=== PATIENT | female | born 1985 | race Caucasian/White ===

== ENCOUNTER 2016-08-16 03:18 | Inpatient (IN) | payer OTHER ==
[2016-08-16] MEDS ORDERED: Ondansetron 4 MG/2 ML SDV IVPUSH PRN (07:43)
[2016-08-16] MEDS ORDERED: Sodium Chloride 0.9% 10 ML Syringe FLUSH PRN (07:43)
[2016-08-16] MEDS ORDERED: Nalbuphine 20 MG/1 ML Amp IVPUSH PRN (07:43)
[2016-08-16] MEDS ORDERED: Oxytocin/Lactated Ringers 10 UNIT/1,000 ML BAG IV SCH (07:45)
[2016-08-16] MEDS ORDERED: Lidocaine 1% 50 ML MDV INJECT SCH (07:45)
[2016-08-16] MEDS: Oxytocin/Lactated Ringers 10 UNIT/1,000 ML BAG IV SCH ×2 (08:16→18:45)
[2016-08-16] MEDS: Lactated Ringers 1,000 ML IV SCH ×4 (08:17→23:19)
--- NOTE | 2016-08-16 09:03 | HP ---
DATE OF ADMISSION: 08/16/2016 ADMISSION DIAGNOSIS: A 39 and 1/7th week intrauterine , elective induction of labor. HISTORY OF PRESENT ILLNESS: The patient is a 31-year-old 3, para 1-0-1-1 white female, who is admitted for elective induction of labor. She has an intrauterine at 39 and 1/7th weeks gestational age as based upon a certain last menstrual period started on 11/16/2015, giving an WONG of 08/22/2016 and supported by ultrasounds done on 01/13/2016, 02/10/2016, and 04/27/2016. The patient is scheduled for admission early on the morning of 08/16/2016 for Pitocin induction. The procedure, risks, benefits, alternatives of care, limitations and followup were discussed in detail with the patient. She appears to understand and wishes to proceed. FUR TANNER HISTORY: 3, para 1-0-1-1. Last 2 pregnancies include the followin. Female born on 06/08/2014 at 40 and 4/7th weeks gestational age after 24 hours of labor - normal spontaneous vaginal delivery - epidural - [facility] - child's name is Estefania Cassidy. 2. Miscarriage, 8 weeks gestational age on 09/01/2015. The patient had last menstrual period started 11/16/2015. Relatively certain. Cycles come every 30 days. Using no control at the time of conception. Menarche age 12. Positive HCG was on 01/16/2016. Her has been relatively unremarkable with her first visit at 12 and 2/7th weeks gestational age on 02/10/2016. Her fundal height growth has been appropriate for gestational age and her weight gain has been approximately 38 pounds for a final weight of 199 pounds. Her vital signs have been stable. The patient had a [place] test which returned negative on 03/15/2016. She is desiring epidural in Labor. Diphtheria pertussis tetanus vaccination was given on 07/05/2016. She is group B strep screen positive. Laboratory testing in shows her blood to be A positive with a negative antibody screen. Hemoglobin is 11 whereas 13.3 at first visit and platelets were 286 at that time. Rubella titer shows immunity. RPR is nonreactive. Hepatitis B and HIV assays were negative. Chlamydia and gonorrhea assays were negative. [place] test in 03/09/2016 was normal. Her 1-hour GTT was elevated at 153. Her 3-hour glucose tolerance test showed a fasting blood sugar of 72, a 1-hour sugar of 152, a 2-hour glucose of 176, and a 3-hour glucose of 122. Group B strep screen was negative. ALLERGIES: None. CURRENT MEDICATIONS: 1. vitamins 1 daily. 2. Diphenhydramine 1 at bedtime p.r.n. 3. Gaviscon p.r.n. for heartburn. PAST MEDICAL HISTORY: 1. Normal spontaneous vaginal delivery, 2013. 2. Abnormal Pap smear with resultant cervical cryotherapy, 2007. PAST SURGICAL HISTORY: 1. Hemorrhoidectomy. 2. Cervical cryotherapy, 2007. FAMILY HISTORY: Maternal grandmother with diabetes. Maternal grandmother and maternal grandfather with hypertension. Mother with hyperthyroidism. Maternal aunt with breast cancer. No anesthesia, bleeding, or blood clotting problems noted in the family. SOCIAL HISTORY: The patient is . She lives in [place], [place]. is Franco Solis. She does not use any significant amounts of alcohol, drugs, or tobacco. REVIEW OF SYSTEMS: SKIN: No lesions. HEENT: No concerns. CARDIOVASCULAR: No chest pain, exercise intolerance. RESPIRATORY: No URI, shortness of breath, or asthma symptoms. BREASTS: Changes only associated with . GASTROINTESTINAL: Appetite is good. No nausea, vomiting, diarrhea, blood, or mucus in the stool. GENITOURINARY: changes consistent with term . EXTREMITIES/MUSCULOSKELETAL: Some lower extremity swelling - mild - no joint deformities, decreased range of other problems. NEUROLOGICAL SYSTEM: No concerns. PHYSICAL EXAMINATION: VITAL SIGNS: On evaluation at her first visit. Her height was 5 feet 7 inches. Her weight was 161. Her body mass index was 25.2. On last evaluation, her blood pressure 124/76, her weight was 200 pounds. GENERAL: The patient is a well-developed, well-nourished, pleasant female, stated age, in no acute distress. SKIN: Warm, dry, without lesions. LUNGS: Clear with good breath sounds in all lung baker. CARDIOVASCULAR: Shows regular rate and rhythm without murmurs. BREAST: Deferred, having been done at first visit found to be normal. No masses, dimpling, or discharge bilaterally. No axillary or supraclavicular lymphadenopathy noted at that time. ABDOMEN: Protuberant with with fundal height consistent with dates at 39 cm. GENITOURINARY: Cervical exam shows cervix to be 1 cm/80% effaced/soft/-2/mid position. EXTREMITIES AND NEUROLOGICAL: Showed trace edema in bilateral lower extremities, otherwise negative. ASSESSMENT: 1. Term intrauterine at the time of admission at 39 and 1/7th weeks gestational age - admitted for elective induction of labor. 2. Group B strep status negative. 3. [place] test negative. 4. The patient is okay with epidural in Labor and Delivery. 5. Tdap given during course. PLAN: 1. Pitocin induction of labor. 2. CBC. 3. Epidural for p.r.n. as per patient's desire. 4. Encourage nursing behavior. MMODAL /[id number]
--- NOTE | 2016-08-16 13:40 | PCM.PREANE ---
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: no symptoms Respiratory: Reports: no symptoms Cardiovascular: Reports: no symptoms GI: Reports: no symptoms Other: Reports: none - PHYSICAL ASSESSMENT HR: 105 RR: 16 BP: 124/87 Temp: 37.1 C Vital Signs: Last Vital Signs Temp Pulse 98 08/16/16 07:47 Resp 16 08/16/16 07:47 BP 122/82 08/16/16 07:47 Pulse Ox Height: 1.7 m Weight: 92.079 kg NPO Status Date: 08/16/16 NPO Status Time: 10:30 ASA Class: 2 Mental Status: alert & oriented x3 Airway Class: Mallampati = 1 Dentition: Reports: normal dentition Thyro-Mental Finger Breadths: 3 Mouth Opening Finger Breadths: 5 ROM/Head Extension: full Respiratory Status: lungs clear to auscultation bilaterally Cardiovascular Status: regular rate & rhythm, normal S1, S2, no murmur, blood pressure WNL - LAB Values: Laboratory Last Values WBC 11.09 K/mm3 (3.98-10.04) H 08/16/16 08:15 RBC 3.56 M/mm3 (3.98-5.22) L 08/16/16 08:15 Hgb 11.5 gm/L (11.2-15.7) 08/16/16 08:15 Hct 34.1 % (34.1-44.9) 08/16/16 08:15 MCV 95.8 fl (79.4-94.8) H 08/16/16 08:15 MCH 32.3 pg (25.6-32.2) H 08/16/16 08:15 MCHC 33.7 g/dl (32.2-35.5) 08/16/16 08:15 RDW Std Deviation 43.3 fL (36.4-46.3) 08/16/16 08:15 Plt Count 247 K/mm3 (182-369) 08/16/16 08:15 MPV 10.0 fl (9.4-12.3) 08/16/16 08:15 Neut % (Auto) 68.8 % (34.0-71.1) 08/16/16 08:15 Lymph % (Auto) 21.5 % (19.3-51.7) 08/16/16 08:15 [place] % (Auto) 7.4 % (4.7-12.5) 08/16/16 08:15 Eos % (Auto) 1.0 (0.7-5.8) 08/16/16 08:15 Baso % (Auto) 0.1 % (0.1-1.2) 08/16/16 08:15 Neut # 7.64 K/mm3 (1.56-6.13) H 08/16/16 08:15 Lymph # 2.38 K/mm3 (1.18-3.74) 08/16/16 08:15 [place] # 0.82 K/mm3 (0.24-0.36) H 08/16/16 08:15 Eos # 0.11 K/mm3 (0.04-0.36) 08/16/16 08:15 Baso # 0.01 K/mm3 (0.01-0.08) 08/16/16 08:15 Manual Slide Review Normal smear 08/16/16 08:15 - ALLERGIES Allergies/Adverse Reactions: Allergies Allergy/AdvReac Type Severity Reaction Status Date / Time No Known Allergies Allergy Verified 08/16/16 06:42 - BLOOD Blood Available: Yes - ANESTHESIA PLAN Preop Beta Bia: No - ACKNOWLEDGEMENTS Pt an appropriate candidate for the planned anesthesia: Yes Alternatives and risks of anesthesia discussed w pt/guardian: Yes Pt/Guardian understands and agree with anesthesia plan: Yes PreAnesthesia Questionnaire Cardiovascular History: Reports: None Respiratory History: Reports: None Gastrointestinal History: Reports: GERD, Hemorrhoids 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: 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: : 3 Para: 1 - Past Surgical History GI Surgical History: Reports: Other (see below) Other GI Surgeries/Procedures: Hemorrhoidectomy - SUBSTANCE USE Smoking Status *Q: Never Smoker Second Hand Smoke Exposure: No Days Per Week of Alcohol Use: 0 Number of Drinks Per Day: 0 Total Drinks Per Week: 0 Recreational Drug Use History: No - HOME MEDS Home Medications: Home Meds PNV95/Ferrous Fumarate/FA [ Tablet] 1 each PO DAILY 08/16/16 [History] diphenhydrAMINE [Benadryl] 50 mg PO DAILY 08/16/16 [History] - CURRENT (IN HOUSE) MEDS Current Meds: Current Medications Lactated Ringer's (Ringers, Lactated) 1,000 mls @ 100 mls/hr IV ASDIRECTED NANCY Last Admin: 08/16/16 08:17 Dose: 100 mls/hr Oxytocin/Lactated Ringer's (Pitocin In Lr 10 Units/1,000 Ml) 10 unit in 1,000 mls @ 500 mls/hr IV TITRATE NANCY Oxytocin/Lactated Ringer's (Pitocin In Lr 10 Units/1,000 Ml) 10 unit in 1,000 mls @ 12 mls/hr IV TITRATE NANCY; 2 MUNITS/MIN PRN Reason: Protocol Last Titration: 08/16/16 13:00 Dose: 18 munits/min, 108 mls/hr Lidocaine HCl (Xylocaine 1%) 10 ml INJECT .ONETIME NANCY Nalbuphine HCl (Nubain) 10 mg IVPUSH Q2H PRN PRN Reason: Pain (moderate 4-6) Ondansetron HCl (Zofran) 4 mg IVPUSH Q4H PRN PRN Reason: Nausea/Vomiting Sodium Chloride (Saline Flush) 10 ml FLUSH ASDIRECTED PRN PRN Reason: Keep Vein Open
[2016-08-16] MEDS ORDERED: diphenhydrAMINE 50 MG/ML SDV IVPUSH PRN (13:57)
[2016-08-16] MEDS ORDERED: ePHEDrine 50 MG/ML SDV IVPUSH PRN (13:57)
[2016-08-16] MEDS: fentaNYL 100 MCG/2 ML SDV EPIDUR PRN ×2 (16:49→23:28)
[2016-08-16] MEDS: Bupivacaine/fentaNYL/NS 100 ML Bag EPIDUR SCH ×2 (16:49→22:52)
[2016-08-17] MEDS ORDERED: Dextrose 5%-Lactated Ringers 1,000 ML ONE (02:13)
--- NOTE | 2016-08-17 03:41 | PCM.SN ---
- Free Text/Narrative Note: Bety is a 31-year-old 2 now para 2002 white female who was admitted on 08/16/2016 for elective induction of labor at 39 weeks. She is induced with Pitocin and eventually with artificial rupture membranes. heart tones were normal throughout the entire course of labor. Her labor progressed slowly but steadily to approximately 200 hours on 08/17/2016 at which time she began pushing. She pushed for approximately an hour and at 0318 hours she delivered a viable, single 10, male weighing 3480 g (7 pounds 10.8 ounces) having Apgars of 8 and 9 in a left occiput anterior position. She delivered over an intact perineum. Baby was placed on mom's abdomen. Cord was allowed to pulsate for 1 minute and then was clamped and cut by the father. Cord blood was obtained. The perineum was intact and no stitches were needed. The patient was administered Pitocin IV after delivery of the baby to facilitate increase in uterine tone and slow bleeding. Placenta delivered in a [place] fashion, intact and complete at 0322 hours. It was discarded per patient desire. Uterus was massaged and found to be at the umbilicus, firm and nontender. Estimated blood loss was 100 cc. Condition good. Patient plans to nurse. Epidural catheter was removed at the end of the procedure without problems.
[2016-08-17] MEDS ORDERED: Dextrose 5%-Lactated Ringers 1,000 ML IV SCH (04:07)
[2016-08-17] MEDS ORDERED: Docusate Sodium 100 MG Cap PO PRN (04:07)
[2016-08-17] MEDS ORDERED: Lanolin 100% Cream 7 GM Tube TOP PRN (04:07)
[2016-08-17] MEDS ORDERED: Benzocaine/Menthol 20%-0.5% Spray 56 GM Canister TOP PRN (04:07)
[2016-08-17] MEDS ORDERED: Witch Hazel Medicated Pads 100/Jar TOP PRN (04:07)
[2016-08-17] MEDS: Ibuprofen 600 MG Tab PO PRN ×4 (05:00→18:02)
[2016-08-17] MEDS: Prenatal Multivitamin with Calcium/Folic Acid/Iron Tab PO SCH (09:10)
[2016-08-17] MEDS: Acetaminophen 325 MG Tab PO PRN ×3 (10:54→20:49)
[2016-08-17] MEDS: Acetaminophen/oxyCODONE 325-5 MG Tab PO PRN (22:40)
[2016-08-18] MEDS: Ibuprofen 600 MG Tab PO PRN (00:39)
[2016-08-18] MEDS: Acetaminophen/oxyCODONE 325-5 MG Tab PO PRN ×3 (04:01→14:16)
[2016-08-18] MEDS: Prenatal Multivitamin with Calcium/Folic Acid/Iron Tab PO SCH (08:44)
--- NOTE | 2016-08-18 09:42 | PCM.DCSUM1 ---
Discharge Summary - Hospital Course Free Text/Narrative:: Bety is a 31-year-old 2 now para 2002 white female who was admitted on 08/16/2016 for elective induction of labor at 39 weeks. She is induced with Pitocin and eventually with artificial rupture membranes. heart tones were normal throughout the entire course of labor. Her labor progressed slowly but steadily to approximately 200 hours on 08/17/2016 at which time she began pushing. She pushed for approximately an hour and at 0318 hours she delivered a viable, single 10, male infant weighing 3480 g (7 pounds 10.8 ounces) having Apgars of 8 and 9 in a left occiput anterior position. She delivered over an intact perineum. Baby was placed on mom's abdomen. Cord was allowed to pulsate for 1 minute and then was clamped and cut by the father. Cord blood was obtained. The perineum was intact and no stitches were needed. The patient was administered Pitocin IV after delivery of the baby to facilitate increase in uterine tone and slow bleeding. Placenta delivered in a [place] fashion, intact and complete at 0322 hours. It was discarded per patient desire. Uterus was massaged and found to be at the umbilicus, firm and nontender. Estimated blood loss was 100 cc. Condition good. Patient plans to nurse. Epidural catheter was removed at the end of the procedure without problems. PP doing well. Hb OK. Wants discharge home. - Discharge Data Discharge Date: 08/18/16 Discharge Disposition: Home, Self-Care 01 Condition: Good - Patient Instructions Diet: Regular Diet as Tolerated (nursing) Activity: As Tolerated (No intercourse of tampons) Driving: May Drive Today Showering/Bathing: May Shower (or bathe) Notify Provider of: Fever, Increased Pain, Swelling and Redness, Nausea and/or Vomiting - Discharge Plan Home Medications: Home Meds PNV95/Ferrous Fumarate/FA [ Tablet] 1 each PO DAILY 08/16/16 [History] Acetaminophen/oxyCODONE [Percocet 325-5 MG] 1 - 2 tab PO Q4H PRN #10 tablet 01/27 [Rx] Ibuprofen [IJD: Ibuprofen] 600 mg PO Q4H PRN #30 tablet 08/18/16 [Rx] Referrals: Khalif Freed MD [Primary Care Provider] - (RTC 6 weeks-[facility]) - Discharge Summary/Plan Comment DC Time >30 min.: No Discharge Summary/Plan Comment: Instructions: 1. Nursing diet 2. Precautions regarding pain, temp, bleeding, DVT/PE given. 3. Meds per home med sheet. 4. RTC [address] Freed Dx: 39 week IUP-delivered cond: good - Patient Data Vitals - Most Recent: Last Vital Signs Temp 36.6 C 08/17/16 13:15 Pulse 85 08/17/16 12:00 Resp 20 08/17/16 12:00 BP 113/73 08/17/16 12:00 Pulse Ox 97 08/17/16 12:00 Weight - Most Recent: 92.079 kg I&O - Last 24 hours: Intake & Output 08/17/16 08/18/16 08/18/16 22:59 06:59 14:59 Intake Total 240 Balance 240 Lab Results - Last 24 hrs: Laboratory Results - last 24 hr 08/18/16 Range/Units 06:17 WBC 10.96 H (3.98-10.04) K/mm3 RBC 3.31 L (3.98-5.22) M/mm3 Hgb 10.5 L (11.2-15.7) gm/L Hct 32.1 L (34.1-44.9) % MCV 97.0 H (79.4-94.8) fl MCH 31.7 (25.6-32.2) pg MCHC 32.7 (32.2-35.5) g/dl RDW Std Deviation 45.1 (36.4-46.3) fL Plt Count 192 (182-369) K/mm3 MPV 10.1 (9.4-12.3) fl Med Orders - Current: Current Medications Acetaminophen (Tylenol) 650 mg PO Q4H PRN PRN Reason: mild pain or fever Last Admin: 08/17/16 20:49 Dose: 650 mg Benzocaine/Menthol (Dermoplast Pain Relief [place]) 0 gm TOP ASDIRECTED PRN PRN Reason: Perineal Comfort Measure Last Admin: 08/17/16 05:00 Dose: 1 canister Docusate Sodium (Colace) 100 mg PO BID PRN PRN Reason: Constipation Last Admin: 08/18/16 08:47 Dose: 100 mg Emollient Ointment (Lansinoh Hpa) 0 gm TOP ASDIRECTED PRN PRN Reason: Sore Nipples Dextrose/Lactated Ringer's (Dextrose 5%-Lactated Ringers) 1,000 mls @ 125 mls/ hr IV ASDIRECTED NANCY Last Admin: 08/17/16 02:25 Dose: 125 mls/hr Ibuprofen (Motrin) 600 mg PO Q4H PRN PRN Reason: Mild pain or fever Last Admin: 08/18/16 00:39 Dose: 600 mg Oxycodone/Acetaminophen (Percocet 325-5 Mg) 1 - 2 tab PO Q4H PRN PRN Reason: Pain Last Admin: 08/18/16 08:44 Dose: 2 tab Prenat Multivit/[place]/Iron/Folic Ac ( Plus Iron) 1 each PO DAILY NANCY Last Admin: 08/18/16 08:44 Dose: 1 each Witch Megan (Tucks) 1 pad TOP ASDIRECTED PRN PRN Reason: Hemorrhoid pain Last Admin: 08/17/16 05:00 Dose: 1 container Discontinued Medications Diphenhydramine HCl (Benadryl) 25 mg IVPUSH Q6H PRN PRN Reason: pruritis Ephedrine Sulfate (Ephedrine Sulfate) 5 mg IVPUSH ASDIRECTED PRN PRN Reason: Hypotension Fentanyl (Sublimaze) 100 mcg EPIDUR Q3H PRN PRN Reason: Pain Last Admin: 08/16/16 23:28 Dose: 100 mcg Fentanyl/Bupivacaine HCl (Fentanyl/Bupivacaine/Ns 2 Mcg-0.125% 100 Ml) 100 ml EPIDUR ASDIRECTED NANCY Last Admin: 08/16/16 22:52 Dose: 100 ml Lactated Ringer's (Ringers, Lactated) 1,000 mls @ 100 mls/hr IV ASDIRECTED NANCY Last Admin: 08/16/16 23:19 Dose: 100 mls/hr Oxytocin/Lactated Ringer's (Pitocin In Lr 10 Units/1,000 Ml) 10 unit in 1,000 mls @ 500 mls/hr IV TITRATE NANCY Oxytocin/Lactated Ringer's (Pitocin In Lr 10 Units/1,000 Ml) 10 unit in 1,000 mls @ 12 mls/hr IV TITRATE NANCY; 2 MUNITS/MIN PRN Reason: Protocol Last Titration: 08/16/16 20:25 Dose: 0 munits/min, 0 mls/hr Oxytocin 20 unit/ Lactated (Ringer's) 1,002 mls @ 60.12 mls/hr IV TITRATE NANCY; 20 MUNITS/MIN PRN Reason: Protocol Last Titration: 08/17/16 03:06 Dose: 18 munits/min, 54.1 mls/hr Dextrose/Lactated Ringer's (Dextrose 5%-Lactated Ringers) Confirm Administered Dose 1,000 mls @ as directed .ROUTE .K-MED ONE Stop: 08/17/16 02:14 Last Admin: 08/17/16 05:50 Dose: Not Given Lidocaine HCl (Xylocaine 1%) 10 ml INJECT .ONETIME NANCY Nalbuphine HCl (Nubain) 10 mg IVPUSH Q2H PRN PRN Reason: Pain (moderate 4-6) Ondansetron HCl (Zofran) 4 mg IVPUSH Q4H PRN PRN Reason: Nausea/Vomiting Sodium Chloride (Saline Flush) 10 ml FLUSH ASDIRECTED PRN PRN Reason: Keep Vein Open *Q Meaningful Use (DIS) - VTE *Q VTE Criteria *Q: - Stroke *Q Stroke Criteria *Q: - AMI *Q AMI Criteria *Q:
[2016-08-18 14:07] VITALS: BP 118/80
== END 2016-08-18 15:30 | disposition home or self-care (01) | DRG 775 ==
LOC: JD.OB 03:18 → OBSVTOIN 08-17 03:18 → JD.OB 08-17 03:18
PROVIDERS: ADMIT Obstetrics & Gynecology; ATTEND Obstetrics & Gynecology
PROC: 10E0XZZ Delivery of Products of Conception, External Approach (ICD-10-PCS; principal; 2016-08-17)
PROC: 10907ZC Drainage of Amniotic Fluid, Therapeutic from Products of Conception, Via Natural or Artificial Opening (ICD-10-PCS; 2016-08-17)
PROC: 3E033VJ Introduction of Other Hormone into Peripheral Vein, Percutaneous Approach (ICD-10-PCS; 2016-08-17)
PROC: 00HU33Z Insertion of Infusion Device into Spinal Canal, Percutaneous Approach (ICD-10-PCS; 2016-08-17)
PROC: 3E0R3CZ (ICD-10-PCS; 2016-08-17)
DX: O80 Encounter for full-term uncomplicated delivery (principal); Z3A.39 39 weeks gestation of pregnancy; Z37.0 Single live birth
CPT/HCPCS: 36415; 85025; 85027; A9270-GY; J2590; J3010; J7042; J7120